=== PATIENT | female | born 1945 | race Caucasian/White ===

== ENCOUNTER 2019-01-11 10:03 | Emergency (ER) | payer MEDICARE, SELFPAY ==
[2019-01-11 10:05] VITALS: BP 220/75; PULSE 77; RESP 18; TEMP 36.7; O2SAT 100
--- NOTE | 2019-01-11 11:47 | PC.NURSE ---
Patient was cleaning a drip tray, sliced fifth digit on right hand. Flap present. Bleeding controlled upon assessment. Wet gauzed placed and wrapped finger. CMS intact.
[2019-01-11 12:23] VITALS: BP 182/66; PULSE 86; RESP 15; O2SAT 98
--- NOTE | 2019-01-11 13:43 | ED.SKABFB ---
HPI - Skin/Abscess/Foreign Bdy <FLORENCE Dunn - Last Filed: 01/11/19 16:04> General Chief complaint: Skin/Abscess/Foreign Body Stated complaint: cut pinky finger on rt hand Time Seen by Provider: 01/11/19 12:08 Source: patient and family Mode of arrival: ambulatory Limitations: no limitations History of Present Illness HPI narrative: The patient is a 73-year-old female with history of thyroid disorder who presents with her daughter for chief complaint of a cut on the 5th digit of her right hand. She states she cut herself with a dish this morning. Her last tetanus was 2 years ago. She washed out. She states there is a flap of skin. She states she has full range of motion. Related Data Home Medications Medication Instructions Recorded Confirmed thyroid (pork) [Nature-Throid] 32.5 mg PO DAILY 01/11/19 01/11/19 Allergies Allergy/AdvReac Type Severity Reaction Status Date / Time Sulfa (Sulfonamide Allergy Intermediate Rash Verified 01/11/19 10:23 Antibiotics) Review of Systems <FLORENCE Dunn - Last Filed: 01/11/19 16:04> Review of Systems GENERAL: Denies chills, fatigue, malaise, fever, sweats. HEENT: Denies sinus pain, ear pain, sore throat, difficulty swallowing, dizziness. RESPIRATORY: Denies dyspnea, cough, wheezing, hemoptysis, sputum. CARDIOVASCULAR: Denies chest pain, palpitations, orthopnea, edema, GASTROINTESTINAL: Denies nausea, vomiting, abdominal pain, diarrhea, constipation, melena. : Denies dysuria, frequency, incontinence, hematuria, urinary retention. MUSCULOSKELETAL: See HPI SKIN: See HPI NEUROLOGIC: Denies weakness, headache, numbness, change in speech, confusion, seizures, incoordination. PSYCHIATRIC: No concerning psychosocial issues. 12 point review of systems is negative except for those stated above PFSH <FLORENCE Dunn - Last Filed: 01/11/19 16:04> Social History Smoking Status: Former smoker Social History Smoking Status: Former smoker Exam <FLORENCE Dunn - Last Filed: 01/11/19 16:04> Narrative Exam Narrative: GENERAL: This is a well-nourished, well-developed patient, appears anxious HEAD: Atraumatic. Normocephalic. No temporal or scalp tenderness. EYES: Pupils equal round and reactive. Extraocular motions intact. No scleral icterus. No injection or drainage. ENT: Nose without bleeding, purulent drainage or septal hematoma. Throat without erythema, tonsillar hypertrophy or exudate. Uvula midline. Airway patent. NECK: Trachea midline. No JVD or lymphadenopathy. Supple, nontender, no meningeal signs. CARDIOVASCULAR: Regular rate and rhythm RESPIRATORY: No cough. No increased respiratory effort. EXTREMITIES: Full range of motion noted left 5th digit with resistance. Capillary refill less than 2 seconds all fingers left hand. BACK: Nontender without deformity or crepitance. No flank tenderness. NEURO: AOx3. SKIN: 2 cm flap laceration on lateral aspect of left 5th digit. No tendon or muscle involvement. Using blood on exam. Initial Vital Signs Initial Vital Signs: Vital Signs Temperature 98.0 F 01/11/19 10:05 Pulse Rate 77 01/11/19 10:05 Respiratory Rate 18 01/11/19 10:05 Blood Pressure 220/75 H 01/11/19 10:05 Pulse Oximetry 100 01/11/19 10:05 <DO Iván Vance Last Filed: 01/11/19 18:07> Initial Vital Signs Initial Vital Signs: Vital Signs Temperature 98.0 F 01/11/19 10:05 Pulse Rate 77 01/11/19 10:05 Respiratory Rate 18 01/11/19 10:05 Blood Pressure 220/75 H 01/11/19 10:05 Pulse Oximetry 100 01/11/19 10:05 Procedures <FLORENCE Dunn - Last Filed: 01/11/19 16:04> Laceration Repair Laceration 1: Site: hand Side (If applicable): left (2) Size (cm): 2 Description: flap Pre-repair: wound explored, irrigated extensively (The cleansed with sterile water, iodine.), deep structures intact and extensive debridement Skin layer closed with: steri-strips (x 1) Course <FLORENCE Dunn - Last Filed: 01/11/19 16:04> Vital Signs - 8 hr 01/11/19 12:23 Pulse Rate 86 Respiratory Rate 15 Blood Pressure [Left Arm] 182/66 H Pulse Oximetry 98 <DO Iván Vance Last Filed: 01/11/19 18:07> Vital Signs - 8 hr 01/11/19 12:23 Pulse Rate 86 Respiratory Rate 15 Blood Pressure [Left Arm] 182/66 H Pulse Oximetry 98 MDM - Skin/Abscess/Foreign Bdy <CAROLINA Dunn-BC - Last Filed: 01/11/19 16:04> MDM Narrative Medical decision making narrative: The patient is a 73-year-old female who presents with chief complaint of a hand laceration. This is a flap laceration. It was cleansed thoroughly as documented the procedural note. Closed with a Steri-Strip. I discussed at length monitoring for signs and symptoms of infection including pus, redness etc. Encouraged her to follow up with primary care provider come back to emergency department for any acute concerns. Discharge Plan Departure Patient Disposition: Home Clinical Impression: Avulsion of skin of finger Qualifiers: Encounter type: initial encounter Qualified Code(s): S61.209A - Unspecified open wound of unspecified finger without damage to nail, initial encounter Discharge Date/Time: 01/11/19 13:00 Interventions: ED Discharge Assessment Last Done: 01/11/19 12:59 Instructions: DI for Laceration Repair Steri-Strips, How To Perform RICE (Rest, Ice, Compress, Elevate), DI for Avulsion Laceration (Not Requiring Sutures) Activity Restrictions/Additional Instructions: Please monitor ear laceration for signs and symptoms of infection including spreading redness, pus and fever. Please follow-up if any of these occur. Please use [id number] pain medications as needed and able as well as rest and ice. Please come back to the emergency department for any acute concerns. Please follow up with the primary care provider if needed. Prescriptions: No Action Nature-Throid 32.5 mg Tablet 32.5 mg PO DAILY RF: 0 <Delfina Carr DO - Last Filed: 01/11/19 18:07> Cosign ED Attending Cosignature Attestation: I was immediately available in the department for consultation. This documentation has been reviewed and I agree with assessment and plan. Supervised by Delfina Carr DO
== END 2019-01-11 13:00 | disposition home or self-care (01) ==
PROVIDERS: Emergency Provider Nurse Practitioner Family
DX: S61.216A Laceration without foreign body of right little finger without damage to nail, initial encounter (principal)
CPT/HCPCS: 99282; 99283

== ENCOUNTER → 2021-12-08 10:25 | Outpatient (CLI) | payer MEDICARE, SELFPAY ==
[2021-12-08 11:11] LABS: Add Manual Diff / Slide Review NO; Basophils Absolute Auto 0 /uL (0-100); Basophils Percent Auto 0.7 % (0-2); Eosinophils Absolute Auto 100 /uL (0-450); Eosinophils Percent Auto 2.2 % (2-4); Hemoglobin 12.8 g/dL (12.0-16.0); Lymphocytes Absolute Auto 2000 /uL (1100-4500); Lymphocytes Percent Auto 34.8 % (25-40); Mean Corpuscular HGB Conc 33.7 % (30-36); Mean Corpuscular Hemoglobin 29.6 PG (26-34); Mean Corpuscular Volume 87.8 fL (80-100); Monocytes Absolute Auto 300 /uL (0-900); Monocytes Percent Auto 5.4 % (3-14); Neutrophils Absolute Auto 3300 /uL (1500-7000); Neutrophils Percent Auto 56.9 % (50-75); Platelet Count 202 X10^3/uL (150-400); Red Blood Cell Count 4.33 X10^6/uL (4.0-5.2); Red Cell Distribution Width 13.2 % (11.6-14.8); White Blood Cell Count 5.7 X10^3/uL (4.5-11.0)
[2021-12-08 11:31] LABS: Alanine Aminotransferase 14 IU/L (<35); Albumin 4.6 g/dL (3.5-5.0); Albumin Globulin Ratio 1.4 (1.0-2.8); Alkaline Phosphatase 64 U/L (38-126); Aspartate Aminotransferase 27 IU/L (14-36); BUN Creatinine Ratio 16.4 (6-22); Bilirubin Total 1.2 mg/dL (0.2-1.3); Blood Urea Nitrogen 12 mg/dL (7-17); Calcium 9.7 mg/dL (8.4-10.2); Carbon Dioxide 30 mmol/L (22-32); Chloride 102 mmol/L (98-107); Cholesterol 265 mg/dL (140-199); Estimated Glomerular Filt Rate > 60.0 mL/min (>60); Globulin 3.3 g/dL (1.7-4.1); Glucose 92 mg/dL (80-110); HDL Cholesterol 53 mg/dL (40-60); HEMOLYSIS < 15 (0-50); LDL Cholesterol Calculated 191 mg/dL (<100); Potassium 4.3 mmol/L (3.4-5.1); Sodium 138 mmol/L (137-145); Total Protein 7.9 g/dL (6.3-8.2); Triglycerides 104 mg/dL (35-150)
[2021-12-08 11:48] LABS: Vitamin D 25 Hydroxy (D3) 75.3 ng/mL (30.0-100.0)
[2021-12-08 11:49] LABS: Free T3, Triiodothyronine Free 4.51 pg/mL (2.77-5.27); Free T4, Direct Thyroxine 0.92 ng/dL (0.78-2.19)
[2021-12-08 12:03] LABS: Thyroid Stimulating Hormone 1.83 uIU/mL (0.47-4.68)
== END ==
PROVIDERS: PCP Family Medicine; Referring Provider Family Medicine; Visit Provider Family Medicine
DX: E03.9 Hypothyroidism, unspecified (principal); Z13.220 Encounter for screening for lipoid disorders; Z13.21 Encounter for screening for nutritional disorder
CPT/HCPCS: 36415; 80053; 80061; 82306; 84439; 84443; 84481; 85025